=== PATIENT | male | born 1950 | race Caucasian/White ===

== ENCOUNTER 2017-01-03 13:48 | Emergency (ER) | payer MEDICARE, BC ==
[2017-01-03 13:55] VITALS: BP 169/95
[2017-01-03] MEDS ORDERED: Lidocaine 2% PF * 5 ML VIAL INJ ONE (14:37)
--- NOTE | 2017-01-03 14:41 | UC ---
Laceration HPI - HPI Summary HPI Summary: 66 Y/O male being seen after a fall into a [facility] bed resulting in a laceration to top frontal area of head. Denies LOC, headache or visual disturbance. No tenderness to spine on palpation. Neck with full range of motion. Denies paresthesia to upper and lower extremities. C/O mild shoulder pain with full range of motion. Refuses offer of x-ray. States takes ASA 81mg daily. No history of abnormal bleeding. BP is elevated, states has been controlled at most recent visit. Takes antihypertensives as directed. BP elevation most likely due to current injury and pain. - History Of Current Complaint Chief Complaint: UCTrauma Stated Complaint: LACERATION Time Seen by Provider: 01/03/17 14:16 Hx Obtained From: Patient Laceration Location: Head Mechanism Of Injury: Blunt Trauma Onset/Duration: Sudden Onset Severity: Mild Pain Intensity: 2 Pain Scale Used: 0-10 Numeric Aggravating Factors: Nothing - Allergies/Home Medications Allergies/Adverse Reactions: Allergies Allergy/AdvReac Type Severity Reaction Status Date / Time No Known Allergies Allergy Verified 01/03/17 13:50 Home Medications: Home Medications Allopurinol TAB* [Zyloprim 300 MG TAB*] 300 mg PO DAILY 01/03/17 [History Confirmed 01/03/17] Aspirin EC Low Dose* [Ecotrin EC Low Dose 81 MG*] 81 mg PO DAILY 01/03/17 [ History Confirmed 01/03/17] amLODIPine TAB* [Norvasc 5 mg TAB*] 5 mg PO DAILY 01/03/17 [History Confirmed ] PMH/Surg Hx/FS Hx/Imm Hx Previously Healthy: Yes Cardiovascular History: Hypertension - Surgical History Surgical History: None - Social History Alcohol Use: None Substance Use Type: None Smoking Status (MU): Never Smoked Tobacco Review of Systems Constitutional: Negative Skin: Other - Laceration to head Eyes: Negative ENT: Negative Respiratory: Negative Cardiovascular: Negative Gastrointestinal: Negative Genitourinary: Negative Motor: Negative Neurovascular: Negative Musculoskeletal: Negative Neurological: Negative Psychological: Negative All Other Systems Reviewed And Are Negative: Yes Physical Exam Triage Information Reviewed: Yes Appearance: Well-Appearing Vital Signs: Initial Vital Signs Temp 97.7 F 01/03/17 13:53 Pulse 61 01/03/17 13:53 Resp 14 01/03/17 13:53 BP 169/95 01/03/17 13:53 Pulse Ox 98 01/03/17 13:53 Vital Signs Reviewed: Yes Eye Exam: Normal ENT Exam: Normal Neck exam: Normal Respiratory Exam: Normal Respiratory: Positive: Lungs clear, Normal breath sounds Cardiovascular Exam: Normal Cardiovascular: Positive: RRR Abdominal Exam: Normal Abdomen Description: Positive: Nontender Bowel Sounds: Positive: Present Musculoskeletal Exam: Normal Musculoskeletal: Positive: ROM Intact Neurological Exam: Normal Neurological: Positive: Alert Psychological Exam: Normal Skin Exam: Normal Laceration Repair - Laceration Repair 1 Laceration Size After Repair: Length (cm) - 45mm Debridement: Debridement with NS Modified For Repair: No Type Injection: Local Anesthesia Used: 2.0% Lido Cleansing Completed Via Routine Prep: Yes Irrigation With Pressure Irrigation Device: Yes Closure Material: [place] Closure Method: Single Layer - 7 Shiv to top of head Laceration Course/Dx - Differential Dx - Laceration/Wound Differental Diagnoses: Laceration Provider Diagnoses: laceration Discharge - Discharge Plan Condition: Stable Disposition: HOME Patient Education Materials: Laceration (ED) Additional Instructions: Return in days for removal of your shiv. Return for symptoms of infection ( redness, drainage, increasing pain or swelling). Take tylenol as needed for pain. Do not exceed recommended dosage. Monitor blood pressure and follow up with primary medical provider for elevated pressures.
[2017-01-03] MEDS ORDERED: Tetan/Diph/Pertus SYR(Tdap)* 0.5 ML SYR(BOOSTRIX) use SYR IM ONE (15:24)
== END 2017-01-03 15:58 | disposition home or self-care (01) ==
LOC: UCEAST 13:48
DX: S01.91XA Laceration without foreign body of unspecified part of head, initial encounter (principal); W19.XXXA Unspecified fall, initial encounter; I10 Essential (primary) hypertension; Z79.82 Long term (current) use of aspirin
CPT/HCPCS: 12002; 90471; 90715; 99212; G0463

== ENCOUNTER 2017-01-13 07:05 | Emergency (ER) | payer MEDICARE, BC ==
[2017-01-13 07:14] VITALS: BP 171/85
--- NOTE | 2017-01-13 07:42 | UC ---
Wilfred Blanca Benjamin, scribed for Kassie Trivedi MD on 01/13/17 at 0727 . HPI Wound/Suture Re-check - HPI Summary HPI Summary: 66yo male comes to for staple removal after being seen in ED for head laceration on 01/03/17. Pt fell and cut his head at [place] [employer] [place]. Pt presents with a laceration with shiv on his right forehead. Pt denies any problems with his laceration currently. PT is UTD on Tetanus shot--received the shot 10 days ago. Denies concussive-type symptoms. No h/a, no vis / aud changes. No dizziness. - History Of Current Complaint Chief Complaint: UCLaceration Stated Complaint: STAPLE REMOVAL Time Seen by Provider: 01/13/17 07:07 Hx Obtained From: Patient Onset/Duration: Gradual Onset, Lasting Days, Still Present Surgical Site: right forehead Severity: Mild Pain Intensity: 0 Pain Scale Used: 0-10 Numeric Procedure Type: Shiv - Allergies/Home Medications Allergies/Adverse Reactions: Allergies Allergy/AdvReac Type Severity Reaction Status Date / Time Penicillins Allergy Rash Verified 01/13/17 07:10 PMH/Surg Hx/FS Hx/Imm Hx Previously Healthy: Yes Endocrine History: Thyroid Disease - Gout Cardiovascular History: Hypertension - Surgical History Surgical History: None - Social History Occupation: Retired Lives: With Family Alcohol Use: None Substance Use Type: None Smoking Status (MU): Never Smoked Tobacco Review of Systems Constitutional: Other - SEE HPI. All Other Systems Reviewed And Are Negative: Yes Physical Exam Triage Information Reviewed: Yes Appearance: Well-Appearing, No Pain Distress, Well-Nourished Vital Signs: Initial Vital Signs Temp 98.2 F 01/13/17 07:11 Pulse 57 01/13/17 07:11 Resp 16 01/13/17 07:11 BP 171/85 01/13/17 07:11 Pulse Ox 98 01/13/17 07:11 Eye Exam: Normal ENT Exam: Normal Dental Exam: Normal Neck exam: Normal Respiratory Exam: Normal - no dyspnea, no tachypnea Respiratory: Positive: Lungs clear, Normal breath sounds Cardiovascular: Positive: Pulses Normal, Brisk Capillary Refill Abdomen Description: Positive: Nontender, No Organomegaly, Soft Musculoskeletal: Positive: Strength Intact, ROM Intact Neurological: Positive: Alert, Muscle Tone Normal Psychological Exam: Normal Skin Exam: Normal Skin: Negative: rashes Procedures - Procedure Summary Procedure Summary: SHIV REMOVAL: OF SHIV PLACED Single Layer - 7 Shiv to top of head Course/Dx - Course Course Of Treatment: RECIEVED THE PT WITH WOUND CARE. SEE AVS INSTRUCTIONS. Reviewed pts medication and allergy lists. Blood pressure noted. - Differential Dx - Laceration/Wound Provider Diagnoses: Staple removal s/p scalp laceration. Discharge - Discharge Plan Condition: Stable Disposition: HOME Patient Education Materials: Stitches Removal (ED) Referrals: Srinivas Swenson MD [Primary Care Provider] - Additional Instructions: Please follow up with your primary care provider, pre routine. Seek medical attention for worse or new problems in the meantime. Avoid direct sun exposure, indefinitely. Particularly the next 6 weeks. See, medical attention for worse or new problems. The documentation as recorded by the Wilfred cardona Benjamin accurately reflects the service I personally performed and the decisions made by me, Kassie Trivedi MD.
== END 2017-01-13 07:27 | disposition home or self-care (01) ==
LOC: UCEAST 07:05
DX: Z48.02 Encounter for removal of sutures (principal)